=== PATIENT | female | born 1965 | race Caucasian/White ===

== ENCOUNTER 2020-10-29 18:49 | Emergency (ER) | payer SELFPAY ==
[~2020-10-29] VITALS: Ht 160 cm; Wt 121.8 kg
[2020-10-29] MEDS ORDERED: gabapentin 400mg capsule PO STA (23:17)
[2020-10-29] MEDS ORDERED: GABA800T11 PO (23:17)
--- NOTE | 2020-10-29 23:31 | NUR ---
pt to room, assumed care
--- NOTE | 2020-10-29 23:35 | NUR ---
pt c/o "nerve pain to both legs due to my DM2".
[2020-10-29 23:49] VITALS: BP 145/82
== END 2020-10-29 23:50 | disposition home or self-care (01) ==
LOC: ER 18:50
DX: E11.42 Type 2 diabetes mellitus with diabetic polyneuropathy (principal); M79.605 Pain in left leg; M79.604 Pain in right leg; Z79.899 Other long term (current) drug therapy
CPT/HCPCS: 99283